=== PATIENT | female | born 1940 | race Native Hawaiian/Other Pacific Islander ===

== ENCOUNTER 2019-11-17 09:44 | Outpatient (CLI) | payer OTHER ==
[2019-11-17 09:57] LABS: PLATELET COUNT 223 K/uL (152-353)
[2019-11-17 10:34] LABS: POTASSIUM 3.8 mmol/L (3.6-5.2)
== END 2019-11-17 19:16 | disposition home or self-care (01) ==
LOC: LABW 09:44
PROVIDERS: Internal Medicine Cardiovascular Disease
DX: Z79.899 Other long term (current) drug therapy (principal)
CPT/HCPCS: 36415; 80053; 80061; 85027

== ENCOUNTER 2020-01-06 13:26 | Outpatient (CLI) | payer OTHER | END 2020-01-06 19:33 | disposition home or self-care (01) | LOC: RESP 13:26 | DX: I25.10 Atherosclerotic heart disease of native coronary artery without angina pectoris (principal) ==

== ENCOUNTER 2020-07-14 08:00 | Emergency (ER) | payer OTHER ==
[~2020-07-14] VITALS: Ht 157.5 cm; Wt 54.4 kg
[2020-07-14 08:00] VITALS: TEMP 97.2
[2020-07-14 08:52] LABS: PLATELET COUNT 276 K/uL (152-353)
[2020-07-14 09:00] LABS: POTASSIUM 3.6 mmol/L (3.6-5.2)
[2020-07-14 16:16] VITALS: BP 178/96
== END 2020-07-14 16:16 | disposition short-term general hospital (02) ==
LOC: ED 08:00
PROVIDERS: Hospitalist
DX: S32.89XA Fracture of other parts of pelvis, initial encounter for closed fracture (principal); R40.4 Transient alteration of awareness; Z03.818 Encounter for observation for suspected exposure to other biological agents ruled out; V59.9XXA Occupant (driver) (passenger) of pick-up truck or van injured in unspecified traffic accident, initial encounter; Y92.89 Other specified places as the place of occurrence of the external cause
CPT/HCPCS: 80053; 85027; 87635; 96360; 96374; 96375; 96376; 99285; J2175; J2550; Q9963; U0003

== ENCOUNTER 2020-07-25 15:27 | Outpatient (CLI) | payer OTHER | END 2020-07-25 21:10 | disposition home or self-care (01) | LOC: RAD 15:27 → US 15:27 | PROVIDERS: ATTEND Internal Medicine | DX: M79.662 Pain in left lower leg (principal); M25.571 Pain in right ankle and joints of right foot ==

== ENCOUNTER 2020-09-04 11:50 | Outpatient (CLI) | payer OTHER | END 2020-09-04 21:37 | disposition home or self-care (01) | LOC: US 11:50 → RAD 11:50 | PROVIDERS: ATTEND Internal Medicine | DX: Z09 Encounter for follow-up examination after completed treatment for conditions other than malignant neoplasm (principal); I82.402 Acute embolism and thrombosis of unspecified deep veins of left lower extremity ==

== ENCOUNTER 2020-12-15 15:11 | Outpatient (CLI) | payer OTHER | END 2020-12-15 22:37 | disposition home or self-care (01) | LOC: CT 15:11 | PROVIDERS: ATTEND Internal Medicine Sleep Medicine | DX: R91.1 Solitary pulmonary nodule (principal) ==

== ENCOUNTER 2020-12-20 11:38 | Outpatient (CLI) | payer OTHER ==
[2020-12-20 12:12] LABS: POTASSIUM 4.2 mmol/L (3.6-5.2)
== END 2020-12-20 21:38 | disposition home or self-care (01) ==
LOC: LABW 11:38
PROVIDERS: ATTEND Internal Medicine Cardiovascular Disease
DX: Z79.899 Other long term (current) drug therapy (principal)
CPT/HCPCS: 36415; 80053; 84443

== ENCOUNTER 2021-10-16 16:33 | Emergency (ER) | payer OTHER ==
[~2021-10-16] VITALS: Ht 157.5 cm; Wt 54.4 kg
[2021-10-16 19:25] VITALS: BP 175/88; TEMP 97.8
== END 2021-10-16 19:30 | disposition home or self-care (01) ==
LOC: ED 16:33
DX: M79.18 Myalgia, other site (principal); Z95.0 Presence of cardiac pacemaker
CPT/HCPCS: 93005; 96372; 99284; J1885

== ENCOUNTER 2022-01-01 15:49 | Outpatient (CLI) | payer OTHER | END 2022-01-01 19:14 | disposition home or self-care (01) | LOC: CT 15:49 | PROVIDERS: ATTEND Internal Medicine Sleep Medicine | DX: R91.8 Other nonspecific abnormal finding of lung field (principal) ==

== ENCOUNTER 2022-10-07 12:15 | Emergency (ER) | payer OTHER ==
[~2022-10-07] VITALS: Ht 157.5 cm; Wt 54.4 kg
[2022-10-07 12:20] VITALS: TEMP 97.1
[2022-10-07 12:56] LABS: PLATELET COUNT 232 K/uL (152-353)
[2022-10-07 13:14] LABS: POTASSIUM 4.6 mmol/L (3.6-5.2)
[2022-10-07 14:30] VITALS: BP 180/67
== END 2022-10-07 16:21 | disposition short-term general hospital (02) ==
LOC: ED 12:15
PROVIDERS: Emergency Medicine Emergency Medical Services
DX: I63.9 Cerebral infarction, unspecified (principal); R29.703 NIHSS score 3
CPT/HCPCS: 80053; 84484; 85027; 85610; 93005; 96360; 96361; 99284

== ENCOUNTER 2023-01-06 11:37 | Outpatient (CLI) | payer OTHER | END 2023-01-06 21:55 | disposition home or self-care (01) | LOC: CT 11:37 | PROVIDERS: ATTEND Nurse Practitioner Family | DX: R91.8 Other nonspecific abnormal finding of lung field (principal) ==